=== PATIENT | female | born 1975 | race Caucasian/White ===

== ENCOUNTER → 2023-10-27 17:52 | Outpatient (REF) | payer OTHER, SELFPAY | LOC: RAD 17:52 | PROVIDERS: ATTENDING PHYSICIAN Nurse Practitioner Family | DX: M25.562 Pain in left knee (principal) | CPT/HCPCS: 73564 ==

== ENCOUNTER → 2024-01-08 06:57 | Outpatient (REF) | payer OTHER, BC, SELFPAY | LOC: MRI 3T 06:57 | PROVIDERS: ATTENDING PHYSICIAN Nurse Practitioner Family; FAMILY PHYSICIAN Family Medicine | DX: M25.562 Pain in left knee (principal) | CPT/HCPCS: 73721 ==

== ENCOUNTER 2024-02-04 07:58 | Outpatient (RCR) | payer OTHER, BC, SELFPAY | END 2024-02-04 23:59 | disposition home or self-care (01) | LOC: RPT 07:58 | PROVIDERS: ATTENDING PHYSICIAN Nurse Practitioner; FAMILY PHYSICIAN Family Medicine | DX: M25.562 Pain in left knee (principal); Z73.6 Limitation of activities due to disability | CPT/HCPCS: 97110; 97140; 97161; 97530 ==

== ENCOUNTER 2024-02-21 18:05 | Outpatient (RCR) | payer OTHER, BC, SELFPAY | END 2024-02-22 10:43 | disposition home or self-care (01) | LOC: RPT 18:05 | PROVIDERS: ATTENDING PHYSICIAN Nurse Practitioner; FAMILY PHYSICIAN Family Medicine | DX: M25.562 Pain in left knee (principal); Z73.6 Limitation of activities due to disability; R26.89 Other abnormalities of gait and mobility; M62.81 Muscle weakness (generalized) | CPT/HCPCS: 97110; 97140; 97530 ==